=== PATIENT | female | born 2000 | race Caucasian/White ===

== ENCOUNTER → 2022-07-13 | Outpatient (REF) | LOC: M LAB 14:04 | PROVIDERS: ATTEND Nurse Practitioner Adult Health | DX: Z02.1 Encounter for pre-employment examination (principal) ==

== ENCOUNTER 2022-09-18 22:14 | Emergency (ER) | payer OTHER ==
[~2022-09-18] VITALS: Ht 165.1 cm; Wt 81.8 kg
[2022-09-19] MEDS ORDERED: IBUPROFEN 600MG TAB PO ONE (01:30)
[2022-09-19] MEDS ORDERED: IBUP-1022 PO (01:35)
[2022-09-19 01:38] VITALS: BP 139/90
== END 2022-09-19 01:50 | disposition home or self-care (01) ==
LOC: M ED 22:14
DX: S93.401A Sprain of unspecified ligament of right ankle, initial encounter (principal); X50.1XXA Overexertion from prolonged static or awkward postures, initial encounter; Y92.009 Unspecified place in unspecified non-institutional (private) residence as the place of occurrence of the external cause

== ENCOUNTER 2023-04-28 17:01 | Emergency (ER) | payer OTHER ==
[~2023-04-28] VITALS: Ht 165.1 cm; Wt 81.8 kg
[~2023-04-28 17:01] MED LIST: IBUP-1022 PO
[2023-04-28 17:02] VITALS: BP 137/88; TEMP 99.4; O2SAT 98
== END 2023-04-28 19:16 | disposition home or self-care (01) ==
LOC: M ED 17:01
DX: U07.1 COVID-19 (principal); Z79.1 Long term (current) use of non-steroidal anti-inflammatories (NSAID)